=== PATIENT | female | born 1995 | race Caucasian/White ===

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

== ENCOUNTER 2023-08-06 10:30 | Emergency (ER) | payer MEDICAID, OTHER ==
[2023-08-06 10:49] VITALS: BP 144/84; O2SAT 99
[2023-08-06 11:03] LABS: BILIRUBIN,URINE SMALL (NEGATIVE); GLUCOSE, URINE (UA) NEGATIVE (NEGATIVE); KETONES,URINE (UA) NEGATIVE (NEGATIVE); LEUKOCYTE ESTERASE, URINE MODERATE (NEGATIVE); NITRITE,URINE POSITIVE (NEGATIVE); OCCULT BLOOD,URINE LARGE (NEGATIVE); PROTEIN,URINE 100 mg/dL (NEGATIVE); UROBILINOGEN,URINE 1 (NORMAL) E.U./dL (NORMAL)
[2023-08-06 11:14] LABS: CLARITY,URINE SL. CLOUDY (CLEAR); HCG UR QUAL NEGATIVE
[2023-08-06 11:16] LABS: AMORPHOUS SEDIMENT,UR Few /LPF; BACTERIA,URINE Few /HPF (None Seen); RBC,URINE TNTC /HPF (0-5); SQUAMOUS EPITHELIAL CELL,UR MOD Squamous (<= Few); WBC,URINE >25 /HPF (0-5)
--- NOTE | 2023-08-06 11:27 | ED Physician Documentation ---
PD HPI FEMALE - Stated complaint Stated Complaint: - Chief complaint Chief Complaint: UTI - History obtained from History obtained from: Patient, Family - History of Present Illness Timing - duration: Days (2) Associated symptoms: No: Fever, Chest/shoulder pain, Abdominal pain, Back pain, Pelvic pain, Vaginal pain, Vaginal bleeding, Vaginal discharge Contributing factors: No: , Exposed to STD - Additional information Additional information: Patient is a 28 female who states that she has a history of bladder infections. Started having dysuria and urinary frequency starting yesterday, has continued today. Concerned for another bladder infection. No vaginal bleeding or discharge. No back pain. No fevers. No chills. Worse with urination, nothing makes it better. Took Pyridium at home. Patient denies any possibility of . 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 HEENT: Other - Present Medications Home Medications: Ambulatory Orders Medication Instructions Recorded Confirmed Famotidine [Pepcid] 20 mg PO BID #60 tablet 09/08/16 Omeprazole [PriLOSEC] 20 mg PO DAILY #30 capsule 09/08/16 Sertraline [Zoloft] 25 mg PO DAILY 09/08/16 09/08/16 Sucralfate [Carafate] 1 gm PO ACHS #60 tablet 09/08/16 Phenazopyridine HCl [Pyridium] 200 mg PO TID PRN #6 tablet 08/06/23 cephALEXin [Keflex] 500 mg PO Q6H #20 cap 08/06/23 - Allergies Allergies/Adverse Reactions: Allergies Allergy/AdvReac Type Severity Reaction Status Date / Time sulfamethoxazole Allergy Rash Verified 08/06/23 10:37 [From Bactrim] trimethoprim [From Bactrim] Allergy Rash Verified 08/06/23 10:37 - Social History Does the pt smoke?: Yes Smoking Status: Current every day smoker Does the pt drink ETOH?: Yes Does the pt have substance abuse?: No PD ED PE NORMAL - Vitals Vital signs reviewed: Yes - General General: Alert and oriented X 3, No acute distress - HEENT HEENT: Moist mucous membranes - Neck Neck: Supple, no meningeal sign - Cardiac Cardiac: RRR, Strong equal pulses - Respiratory Respiratory: No respiratory distress, Clear bilaterally - Abdomen Abdomen: Soft, Non tender, Non distended - Back Back: No CVA TTP - Derm Derm: Warm and dry - Neuro Neuro: Alert and oriented X 3 Results - Vitals Vitals: Vital Signs - 24 hr 08/06/23 10:37 Temperature 36.3 C L Heart Rate 87 Respiratory 16 Rate Blood Pressure 144/84 H O2 Saturation 99 Oxygen O2 Source Room air - Labs Labs: Laboratory Tests 08/06/23 10:51 Urine Color BROWN Urine Clarity SL. CLOUDY Urine pH 6.0 Ur Specific [place] 1.025 Urine Protein 100 H Urine Glucose (UA) NEGATIVE Urine Ketones NEGATIVE Urine Occult Blood LARGE H Urine Nitrite POSITIVE H Urine Bilirubin SMALL H Urine Urobilinogen 1 (NORMAL) Ur Leukocyte Esterase MODERATE H Urine RBC TNTC H Urine WBC >25 H Ur Squamous Epith Cells MOD Squamous H Amorphous Sediment Few Urine Bacteria Few Ur Microscopic Review INDICATED Urine Culture Comments NOT INDICATED Urine HCG, Qual NEGATIVE PD Medical Decision Making - ED course Complexity details: reviewed results, considered differential, d/w patient ED course: 28-year-old female who presents to the emergency department with UTI symptoms. Urinalysis consistent with UTI. No evidence of pyelonephritis. No STD exposure. No evidence of sepsis. Will place on antibiotics for home. Patient counseled regarding signs and symptoms for which I believe and urgent re- evaluation would be necessary. Patient with good understanding of and agreement to plan and is comfortable going home at this time This document was made in part using voice recognition software. While efforts are made to proofread this document, sound alike and grammatical errors may occur. Departure - Departure Disposition: 01 Home, Self Care Clinical Impression: Urinary tract infection Qualifiers: Urinary tract infection type: acute cystitis Hematuria presence: without hematuria Qualified Code(s): N30.00 - Acute cystitis without hematuria Condition: Good Instructions: ED UTI Cystitis Female Follow-Up: your,doctor as needed [Other] Prescriptions: cephALEXin [Keflex] 500 mg PO Q6H #20 cap Phenazopyridine HCl [Pyridium] 200 mg PO TID PRN #6 tablet PRN Reason: dysuria Comments: Your prescriptions were sent to [facility]. Please follow-up with your doctor for further care. Please return if you worsen. Take all antibiotics until gone. Discharge Date/Time: 08/06/23 11:30
--- NOTE | 2023-08-07 16:43 | ED Physician Documentation ---
ED Addendum - Addendum Addendum: 08/07/23 16:42 Patient called requesting a prescription for Diflucan as she often gets yeast infections following antibiotics. Departure - Departure Disposition: 01 Home, Self Care Clinical Impression: Urinary tract infection Qualifiers: Urinary tract infection type: acute cystitis Hematuria presence: without hematuria Qualified Code(s): N30.00 - Acute cystitis without hematuria Condition: Good Instructions: ED UTI Cystitis Female Follow-Up: your,doctor as needed [Other] Prescriptions: Fluconazole 150 mg PO ONCE #1 tablet cephALEXin [Keflex] 500 mg PO Q6H #20 cap Phenazopyridine HCl [Pyridium] 200 mg PO TID PRN #6 tablet PRN Reason: dysuria Comments: Your prescriptions were sent to [facility] in [place]. Please follow-up with your doctor for further care. Please return if you worsen. Take all antibiotics until gone. Discharge Date/Time: 08/06/23 11:30
== END 2023-08-06 11:30 | disposition home or self-care (01) ==
LOC: ED 10:30
DX: N30.00 Acute cystitis without hematuria (principal); F17.200 Nicotine dependence, unspecified, uncomplicated; Z79.899 Other long term (current) drug therapy
CPT/HCPCS: 81001; 81003; 81025; 87086; 99283